=== PATIENT | female | born 1990 | race Caucasian/White ===

== ENCOUNTER 2018-06-30 13:35 | Emergency (ER) | payer SELFPAY ==
[~2018-06-30] VITALS: Ht 160 cm; Wt 86.2 kg
--- OUTSIDE RECORDS SUMMARY | 2018-06-30 13:38 | XMS REPORT | Clinical Summary ---
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 08/10/2017 acetaminophen-codeine Take 1 tablet 20 tablet 0 (TYLENOL/CODEINE #3) by mouth 8 300-30 mg per every 6 hours tabletIndications: Jaw as needed for swelling, Cellulitis of up to 5 days mouth for Pain. Active Problems No known active problems Encounters Care Team Description Date Type Specialty Laureano Galvan MD Jaw swelling (Primary Dx); Cellulitis of mouth 08/04/2017 Emergency Emergency Medicine - 08/05/2017 after 06/29/2017 Family History Medical History Relation Name Comments Diabetes Paternal Grandfather Heart self Psychiatry self Relation Name Status Comments Daughter 4 Alive Father Alive Mother Alive Paternal Grandfather Alive self Alive Social History Date Tobacco Use Types Packs/Day Years Used Current Every Day Smoker 0.5 Smokeless Tobacco: Never Used Alcohol Use Drinks/Week oz/Week Comments Yes ocasionaly Sex Assigned at Date Recorded Not on file Industry Job Start Date Occupation Not on file Not on file Not on file Travel End Travel History Travel Start No recent travel history available. Last Filed Vital Signs Time Taken Vital Sign Reading 08/04/2017 11:38 PM CDT Blood Pressure 143/91 08/04/2017 11:38 PM CDT Pulse 104 08/04/2017 11:38 PM CDT Temperature 37.2 C (98.9 F) 08/04/2017 11:38 PM CDT Respiratory Rate 19 08/04/2017 11:38 PM CDT Oxygen Saturation 100% - Inhaled Oxygen - Concentration - Weight - - Height - - Body Mass Index - Plan of Treatment Health Maintenance Due Date Last Done Comments IMM Influenza Seasonal 01/31/2018 Oct to July (>/=19 yrs) Cervical Cancer Scrn (3 09/24/2019 09/23/2016 Yrs) Results Not on fileafter 06/29/2017 Insurance Type Payer Benefit Subscriber ID Effective Phone Address Plan / Dates Group [place] [employer] [id number] xxxxxxxxx 2016- [phone] [address] [facility] [address] [place] [id number] [facility] SELF-PAY [facility] xxxxxxxxx 2017- [phone] [id number] [place] [address]
--- OUTSIDE RECORDS SUMMARY | 2018-06-30 13:38 | XMS REPORT | Clinical Summary ---
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 10/17/2017 clindamycin (CLEOCIN HCL) Take 1 40 capsule 0 300 MG capsule capsule (300 8 mg total) by mouth 4 (four) times a day for 10 days. 10/10/2017 acetaminophen-codeine Take 1 tablet 10 tablet 0 (TYLENOL WITH CODEINE #3) by mouth 8 300-30 mg per tablet every 6 (six) hours as needed for moderate pain for up to 10 doses. Active Problems Not on file Encounters Care Team Description Date Type Specialty Pierre Macias NP-C Sidlak, Alexander Michael, MD Abscess of left thigh (Primary Dx); Cellulitis of left thigh 10/07/2017 Emergency Emergency Medicine after 06/29/2017 Social History Date Tobacco Use Types Packs/Day Years Used Quit: 09/30/2017 Former Smoker Cigarettes 1 17 Smokeless Tobacco: Never Used Tobacco Cessation: Counseling Given: Yes Alcohol Use Drinks/Week oz/Week Comments Yes occasional Sex Assigned at Date Recorded Not on file Industry Job Start Date Occupation Not on file Not on file Not on file Travel End Travel History Travel Start No recent travel history available. Last Filed Vital Signs Time Taken Vital Sign Reading 10/07/2017 2:04 AM CDT Blood Pressure 129/78 10/07/2017 2:04 AM CDT Pulse 66 10/07/2017 2:04 AM CDT Temperature 36.8 C (98.2 F) 10/07/2017 2:04 AM CDT Respiratory Rate 16 10/07/2017 2:04 AM CDT Oxygen Saturation 100% - Inhaled Oxygen - Concentration 10/06/2017 11:08 PM CDT Weight 87.1 kg (192 lb) 10/06/2017 11:08 PM CDT Height 160 cm (5' 3") 10/06/2017 11:08 PM CDT Body Mass Index 34.01 Plan of Treatment Not on file Procedures Comments Procedure Name Priority Date/Time Associated Diagnosis IA DRAIN SKIN ABSCESS Routine 10/07/2017 SIMPLE 2:12 AM CDT HCG QUALITATIVE, URINE Routine 10/07/2017 SCREEN 1:08 AM CDT after 06/29/2017 Results * INCISION AND DRAINAGE (10/07/2017 2:12 AM CDT) Narrative Performed At Massimo Hodge MD 10/07/20172:53 AM I&D/Aspiration/Amputation Performed by: PIERRE MACIAS Authorized by: PIERRE MACIAS Consent: Consent obtained:Verbal Consent given by:Patient Risks discussed:Bleeding, damage to other organs, infection, incomplete drainage and pain Alternatives discussed:No treatment and delayed treatment Location: Type:Abscess Location:Lower extremity Lower extremity location:L leg Pre-procedure details: Skin preparation:Betadine Anesthesia (see MAR for exact dosages): Anesthesia method:Local infiltration Local anesthetic:Lidocaine 1% WITH epi (6ml) Procedure details: Complexity:Simple Incision types:Single straight Size (cm):1 Scalpel blade:11 Wound management:Irrigated with saline and probed and deloculated Drainage:Purulent and serosanguinous Drainage amount:Moderate Wound treatment:Wound left open Packing materials:1/4 in iodoform gauze Amount 1/4" iodoform:4cm Post-procedure details: Patient tolerance of procedure:Tolerated well, no immediate complications Comments: 4x4, transpore tape placed. * hCG qualitative, urine screen (10/07/2017 1:08 AM CDT) hCG qualitative, urine Negative Negative [facility] DEPARTMENT OF Comment: PATHOLOGY AND The manufacturers stated [employer] MEDICINE sensitivity of HcG test for serum is >/=10 mIU/ml and urine is >/=20mIU/ml. Specimen Urine Performing Organization Address City/State/Zipcode Phone [place] [address] [place] [address] PATHOLOGY AND GENOMIC MEDICINE after 06/29/2017 Advance Directives Patient has advance care planning documents on file. For more information, devan goodman contact: Tom Rincon [address] [place] [address]
--- OUTSIDE RECORDS SUMMARY | 2018-06-30 13:38 | XMS REPORT ---
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 Allergies, Adverse Reactions, Alerts This patient has no known allergies or adverse reactions. Medications This patient has no known medications. Encounters Start Date/Time End Date/Time Encounter Type Admission Type Attending Clinicians Care Facility Care Department Encounter ID 2017-08-04 22:38:43 2017-08-04 22:38:43 Emergency [facility] [id number] 2017-08-04 21:11:16 2017-08-04 21:11:16 Emergency [facility] [id number]
[2018-06-30 15:02] LABS: BASOPHILS % 0.1 % (0.0-1.0); EOSINOPHILS # (AUTO) 0.1 (0.0-0.4); EOSINOPHILS % 1.1 % (0.0-6.0); HEMATOCRIT 36.7 % (34.2-44.1); HEMOGLOBIN 12.9 g/dL (12.0-16.0); LYMPHOCYTES # (AUTO) 1.9 (1.0-3.2); MEAN CORPUSCULAR HEMOGLOBIN 32.8 pg (28-32); MEAN CORPUSCULAR HGB CONC 35.1 g/dL (31-35); MEAN CORPUSCULAR VOLUME 93.4 fL (81-99); MONOCYTES # (AUTO) 0.8 (0.2-0.8); MONOCYTES % 11.1 % (4.4-11.3); NEUTROPHILS # (AUTO) 4.2 (2.1-6.9); NEUTROPHILS % 60.3 % (38.7-80.0); PLATELET COUNT 186 x10e3/uL (140-360); RED BLOOD COUNT 3.93 x10e6/uL (3.6-5.1); RED CELL DISTRIBUTION WIDTH 12.2 % (11.7-14.4)
[2018-06-30 15:17] LABS: ALANINE AMINOTRANSFERASE 16 IU/L (0-55); ALBUMIN 3.6 g/dL (3.5-5.0); ALBUMIN/GLOBULIN RATIO 1.3 (0.8-2.0); ALKALINE PHOSPHATASE 46 IU/L (40-150); ANION GAP 9.1 mmol/L (8-16); BLOOD UREA NITROGEN 10 mg/dL (7-26); BUN/CREATININE RATIO 12 (6-25); CALCIUM 9.2 mg/dL (8.4-10.2); CARBON DIOXIDE 27 mmol/L (22-29); CHLORIDE 104 mmol/L (98-107); CREATININE, SERUM 0.82 mg/dL (0.57-1.11); EST GLOMERULAR FILTRATION RATE > 60 ML/MIN (60-); GLUCOSE 90 mg/dL (74-118); POTASSIUM 4.1 mmol/L (3.5-5.1); SODIUM 136 mmol/L (136-145)
== END 2018-06-30 20:39 | disposition home or self-care (01) ==
LOC: ER 13:35
DX: R20.2 Paresthesia of skin (principal)
CPT/HCPCS: 36415; 80053; 85025; 99283